=== PATIENT | male | born 1980 | race Caucasian/White ===

== ENCOUNTER 2019-07-28 08:27 | Emergency (ER) | payer SELFPAY ==
[~2019-07-28] VITALS: Ht 195.6 cm; Wt 99.8 kg
[2019-07-28 08:44] VITALS: BP 165/117
== END 2019-07-28 10:17 | disposition home or self-care (01) ==
LOC: ER 08:27
DX: L72.9 Follicular cyst of the skin and subcutaneous tissue, unspecified (principal)
CPT/HCPCS: 93971

== ENCOUNTER 2019-08-10 16:10 | Inpatient (IN) | payer MEDICAID ==
[~2019-08-10] VITALS: Ht 193 cm; Wt 97.5 kg
[2019-08-10] MEDS ORDERED: SODIUM CHLORIDE 0.9% 1,000 ML IV ONE ×2 (16:38)
[2019-08-10] MEDS ORDERED: cefTRIAXone 1GM/50ML D5W 50 ML IV ONE (16:45)
[2019-08-10] MEDS ORDERED: IPRATROPIUM BROM 0.5 MG/2.5ML INH SOL NEB ONE (17:15)
[2019-08-10] MEDS ORDERED: ALBUTEROL SULF 2.5 MG/0.5ML(0.5%) NEB SOLN NEB ONE (17:15)
[2019-08-10] MEDS ORDERED: methylPREDNISolone SOD SUCC 125 MG/2 ML VL IV ONE (17:15)
[2019-08-10 17:16] LABS: Basophils # (auto) 0.1 10 ^3/uL (0-0.2); Eosinophils # (auto) 0 10 ^3/uL (0-0.8); Lymphocytes # (auto) 0.7 10 ^3/uL (0.4-5.4); Mean Corpuscular Volume 106.1 fL (80.0-100.0); Monocytes % (auto) 10.9 % (0.0-12.0)
[2019-08-10 17:18] LABS: Basophils % (auto) 0.8 % (0.0-2.0); Hematocrit 47.3 % (41.0-53.0); Hemoglobin 16.7 g/dL (13.5-17.5); Lymphocytes % (auto) 7.9 % (10.0-50.0); Mean Corpuscular Hemoglobin 37.5 pg (28.0-32.0); Mean Corpuscular Hgb Conc. 35.4 g/dL (32.0-36.0); Neutrophils # (auto) 7.2 10 ^3/uL (1.6-8.6); Neutrophils % (auto) 80.4 % (37.0-80.0); Nucleated Red Blood Cells % 0.8 %; Platelet Count (auto) 115 10^3/uL (140-450); Red Blood Cells 4.46 10^6/uL (4.5-5.90); Red Cell Distribution Width 15.8 % (11.8-14.3); White Blood Cell 8.9 10^3/uL (4.4-10.8)
[2019-08-10 17:21] LABS: Albumin 4.6 g/dL (3.4-5.0); Calcium 10.3 mg/dL (8.5-10.1); Potassium 4.2 mmol/L (3.5-5.1)
[2019-08-10 17:23] LABS: Lactic Acid w/Reflex 2.3 mmol/L (0.4-2.0)
[2019-08-10 17:24] LABS: BUN/Creatinine Ratio 7.1; Bilirubin, Total 2.1 mg/dL (0.2-1.0); Total Protein 8.6 g/dL (6.4-8.2)
[2019-08-10] MEDS ORDERED: LORazepam 2MG/ML-1ML VIAL ONE (17:30)
[2019-08-10] MEDS ORDERED: LORazepam 2MG/ML-1ML VIAL IV ONE (17:30)
[2019-08-10] MEDS ORDERED: THIAMINE 100mg/ml INJ (200mg/2ml VIAL) IV ONE (17:45)
[2019-08-10] MEDS: SODIUM CHLORIDE 0.9% 1,000 ML IV SCH (19:45)
[2019-08-10] MEDS ORDERED: ALBUTEROL SULF 2.5 MG/0.5ML(0.5%) NEB SOLN NEB PRN (19:45)
[2019-08-10] MEDS ORDERED: MORPHINE SULF INJ 2 MG/ML SYRINGE 1ML IV PRN (19:45)
[2019-08-10] MEDS ORDERED: LORazepam 2MG/ML-1ML VIAL IV PRN (19:45)
[2019-08-10] MEDS ORDERED: NITROGLYCERIN 0.4 MG SL TAB SL PRN (19:45)
[2019-08-10] MEDS ORDERED: IPRATROPIUM BROM 0.5 MG/2.5ML INH SOL NEB PRN (19:45)
[2019-08-10 21:40] VITALS: BP 148/109
[2019-08-10] MEDS ORDERED: FOLIC ACID 1 MG, MULTIPLE VITAMIN 10 ML, MAGNESIUM SULF SDV 50% 8 MEQ, THIAMINE INJ 100... INJ SCH ×5 (22:00)
[2019-08-10 22:30] VITALS: BP 148/109
[2019-08-10 22:48] VITALS: BP 148/101
[2019-08-11] MEDS: chlordiazePOXIDE HCL 25 MG CAP PO SCH ×3 (00:14→12:00)
[2019-08-11 05:07] LABS: Eosinophils # (auto) 0 10 ^3/uL (0-0.8); Lymphocytes # (auto) 0.3 10 ^3/uL (0.4-5.4); Mean Corpuscular Volume 105.1 fL (80.0-100.0); Monocytes # (auto) 0.4 10 ^3/uL (0-1.3)
[2019-08-11 05:09] LABS: Basophils # (auto) 0.1 10 ^3/uL (0-0.2); Basophils % (auto) 1.2 % (0.0-2.0); Hematocrit 42.2 % (41.0-53.0); Lymphocytes % (auto) 3.2 % (10.0-50.0); Mean Corpuscular Hemoglobin 37.3 pg (28.0-32.0); Mean Corpuscular Hgb Conc. 35.4 g/dL (32.0-36.0); Monocytes % (auto) 4.5 % (0.0-12.0); Neutrophils # (auto) 7.2 10 ^3/uL (1.6-8.6); Neutrophils % (auto) 91.1 % (37.0-80.0); Nucleated Red Blood Cells % 0.9 %; Platelet Count (auto) 111 10^3/uL (140-450); Red Blood Cells 4.02 10^6/uL (4.5-5.90); Red Cell Distribution Width 15.8 % (11.8-14.3); White Blood Cell 7.9 10^3/uL (4.4-10.8)
[2019-08-11 05:21] LABS: INR 1.08 (0.9-1.15); Partial Thromboplastin Time 28.8 sec (23.64-32.05)
[2019-08-11 05:26] LABS: Albumin 3.7 g/dL (3.4-5.0); Calcium 9.5 mg/dL (8.5-10.1); Potassium 3.2 mmol/L (3.5-5.1)
[2019-08-11 05:31] LABS: BUN/Creatinine Ratio 13.9; Bilirubin, Total 1.1 mg/dL (0.2-1.0); Total Protein 7.8 g/dL (6.4-8.2)
[2019-08-11 05:34] VITALS: BP 162/90
[2019-08-11] MEDS: SODIUM CHLORIDE 0.9% 1,000 ML IV SCH (05:45)
[2019-08-11 06:12] VITALS: BP 151/91
[2019-08-11 08:40] VITALS: BP 153/111
[2019-08-11] MEDS ORDERED: PANTOPRAZOLE 40 MG TAB PO SCH (10:00)
[2019-08-11 13:06] VITALS: BP 150/109
[2019-08-11] MEDS ORDERED: POTASSIUM CHL 20 Meq TABLET PO ONE (13:30)
[2019-08-11 14:21] VITALS: BP 150/109
[2019-08-11] MEDS ORDERED: FOLIC ACID 1 MG, MULTIPLE VITAMIN 10 ML, MAGNESIUM SULF SDV 50% 8 MEQ, THIAMINE INJ 100... INJ SCH ×5 (16:00)
== END 2019-08-11 15:21 | disposition home or self-care (01) | DRG 139 ==
LOC: ER 16:10 → EDBD 16:10 → TELE 16:11 → TELE-CENTR 20:51
PROVIDERS: ADMIT Nurse Practitioner Acute Care; ATTEND Family Medicine
DX: J18.9 Pneumonia, unspecified organism (principal); D69.6 Thrombocytopenia, unspecified; K74.60 Unspecified cirrhosis of liver; F10.239 Alcohol dependence with withdrawal, unspecified; E86.0 Dehydration; F17.210 Nicotine dependence, cigarettes, uncomplicated; K76.0 Fatty (change of) liver, not elsewhere classified
CPT/HCPCS: 36415; 71045; 76705; 80053; 82140; 83605; 83690; 84484; 85025; 85379; 85610; 85730; 87040; 87070; 87804; 87880; 93005; 94640; G0378; J0696